=== PATIENT | female | born 1975 | race Caucasian/White ===

== ENCOUNTER 2019-11-16 09:17 | Emergency (ER) | payer OTHER, SELFPAY ==
--- NOTE | ~2019-11-16 | XR_ITS ---
XR lumbar spine min 4V 11/16/2019 09:57 Indication: Low back pain Procedure: 5 views of the lumbar spine Comparison: No prior studies for comparison. Findings: There is mild levocurvature of the lumbar spine. Vertebral body heights are maintained. No significant disc narrowing. No evidence for spondylolisthesis. Sacral foramen are symmetric. Pedicles intact. Impression: 1: No acute abnormality of the lumbar spine. Reviewed, dictated and finalized at location A. Impression: 1: No acute abnormality of the lumbar spine.
[2019-11-16 09:25] VITALS: BP 137/87; PULSE 79; RESP 18; TEMP 36.7; O2SAT 100
[2019-11-16 09:34] VITALS: O2SAT 98
--- NOTE | 2019-11-16 09:38 | ED.BACK ---
HPI - Back Pain/Injury General Chief Complaint: Back Pain/Injury Stated Complaint: Back ache Time Seen by Provider: 11/16/19 09:23 Source: RN notes reviewed History of Present Illness HPI Narrative: Patient presents emergency department from home for back pain. Patient states symptoms began approximately 1 week ago after she was moving furniture. Patient states that she does have a history of similar back problems approximately 2 years ago. She denies any direct trauma or injury. States pain is in the left lower back and does not radiate. Described as throbbing in nature and worse with movement. She denies any fevers or chills abdominal pain numbness or tingling of the extremities bowel or bladder incontinence or any other symptoms Related Data Allergies Allergy/AdvReac Type Severity Reaction Status Date / Time No Known Allergies Allergy Verified 11/16/19 09:30 Review of Systems Review of Systems: Narrative: Gen.: Denies fevers or chills ENT: Denies congestion Respiratory: Denies shortness of breath or cough CV: Denies chest pain or palpitations GI: Denies abdominal pain nausea, emesis or diarrhea denies incontinence Musculoskeletal: See HPI Neuro: Denies numbness, tingling, weakness or focal weakness Skin: Denies rash Except as documented, all other systems reviewed and negative [facility] Past Medical History Medical History (Updated 11/16/19 @ 10:46 by Sean Fitch DO) Patient denies significant medical history Social History Social History (Updated 11/16/19 @ 09:39 by Sean Fitch DO) Smoking packs per day: 0.5 Smoking cigarettes per day: 10.0 Exam Narrative: Exam Narrative: APPEARANCE: No acute distress, nontoxic, resting in bed Eyes: EOMI HEENT: Normocephalic, atraumatic, CV: Regular rate and rhythm without murmur RESPIRATORY: No respiratory distress. Clear to auscultation bilaterally. Abdomen: Soft and nontender, no rebound or guarding MUSCULOSKELETAl: Moves all extremities, no clubbing cyanosis or edema Back: No midline lumbar tenderness to palpation or step-off, tender to palpation over left paravertebral muscles L3-5 , pain increased with forward flexion NEURO: Awake and alert. Following commands, speech normal, no focal deficits, muscle strength 5 out of 5 bilateral lower extremities, bilateral patellar reflex 2+ SKIN:: Warm, dry. Normal Color no rash or lesions Course Course Emergency Course: Discussed with patient results of workup and diagnosis. Discussed need for follow-up with primary care, proper use of medication, and reasons to return to the emergency department. Patient understands and agrees to current treatment plan Vital Signs Vital signs: Vital Signs Temperature 98.1 F 11/16/19 09:25 Pulse Rate 79 11/16/19 09:25 Respiratory Rate 18 11/16/19 09:25 Blood Pressure 137/87 11/16/19 09:25 Pulse Oximetry 100 11/16/19 09:25 Temperature 98.1 F 11/16/19 09:25 Pulse Rate 62 11/16/19 10:19 Respiratory Rate 18 11/16/19 10:19 Blood Pressure 113/72 11/16/19 10:19 Pulse Oximetry 100 11/16/19 10:30 MDM - Back Pain/Injury MDM Narrative Medical decision making narrative: Patient?s pain is positional and localized to back without signs of cord compression or cauda equina. Normal nuerologic exams. No fever noted and no significant risk factors for osteomyelitis or spinal epidural abscess. No symptoms or signs to suggest pain is referred from abdominal or source. There are no pulsatile masses to exam. Patient ambulates with a steady gait and is felt to be up reasonable candidate for continued outpatient management Imaging Data Radiologist's impression: ITS Impressions Lumbar Spine X-Ray 11/16/19 09:58 Impression: 1: No acute abnormality of the lumbar spine. Discharge Plan Discharge Clinical Impression: Low back pain Patient Disposition: Home, Self-Care Condition: Stable Instructions: Antibiotic Form, Acute Lo
--- NOTE | 2019-11-16 09:41 | PC.NURSE ---
Pt ot xray. Will give medication when she returns
[2019-11-16] MEDS: KETOROLAC (*BKC) 60 MG/2 ML VIAL IM (10:01)
[2019-11-16 10:19] VITALS: BP 113/72; PULSE 62; RESP 18; O2SAT 100; O2SAT 99
[2019-11-16 10:30] VITALS: O2SAT 100
[2019-11-16] MEDS: CYCLOBENZAPRINE HCL 10 MG TABLET PO (10:48)
[2019-11-16 11:02] VITALS: BP 113/72; RESP 18; O2SAT 100
== END 2019-11-16 11:03 | disposition home or self-care (01) ==
PROVIDERS: Emergency Provider Emergency Medicine
DX: M54.5 Low back pain (principal); F17.210 Nicotine dependence, cigarettes, uncomplicated
CPT/HCPCS: 72110; 96372; 99283; A9270; J1885

== ENCOUNTER 2021-11-23 16:10 | Emergency (ER) | payer OTHER, SELFPAY ==
[2021-11-23 16:20] VITALS: BP 112/83; PULSE 92; RESP 16; TEMP 37.3; O2SAT 100
--- NOTE | 2021-11-23 16:33 | ED.SKABFB ---
HPI - Skin/Abscess/Foreign Bdy General Chief complaint: Wound/Laceration Stated complaint: Insect Bite Time Seen by Provider: 11/23/21 16:23 Source: patient Mode of arrival: ambulatory Limitations: no limitations History of Present Illness HPI narrative: Ms. Cardoza is a 46-year-old female patient presenting to the clinic today with complaints of a possible spider bite to her left anterior thigh. States that she was bit yesterday and took off her pants and noticed a spider fall out of her pants. She has redness that is going up her abdomen and down into her thighs. She reports the area palma but does not itch. She denies any fever or chills. Related Data Allergies Allergy/AdvReac Type Severity Reaction Status Date / Time No Known Allergies Allergy Verified 11/16/19 09:30 Review of Systems Review of Systems: Pertinent positives per HPI. Patient denies any fever, chills, headache, visual changes, dizziness, cough, runny nose, sore throat, shortness of breath, chest pain, palpitations, nausea, vomiting, diarrhea, constipation, abdominal pain, or any urinary issues. PMFSH Past Medical History Medical History Patient denies significant medical history Social History Social History Smoking packs per day: 0.5 Smoking cigarettes per day: 10.0 Comments At the time of my signature, I reviewed and agree with the nursing past medical, surgical, social, and family history. There is no relevant family history pertinent to the patient complaint. Exam Narrative: General: Well-developed, well nourished, in no apparent distress Head: Normocephalic, atraumatic. Cardio: Regular rate and rhythm, s1 and s2 normal, no murmur appreciated. Resp: Clear to auscultation bilaterally, no rhonchi, rales, wheezing or rubs. Integumentary: [place], warm, and dry, probable spider bite with quarter size induration with redness surrounding the wound with a black center, tenderness to palpation with redness/rash to the lower abdomen and anterior thighs bilaterally Course Course Emergency Course: Portions of this record may have been created with voice recognition software. Level of Care: Express Care Visit Vital Signs Vital signs: Vital Signs Temperature 37.3 C 11/23/21 16:20 Pulse Rate 92 11/23/21 16:20 Respiratory Rate 16 11/23/21 16:20 Blood Pressure 112/83 11/23/21 16:20 Pulse Oximetry 100 11/23/21 16:20 Oxygen Delivery Room Air 11/23/21 16:20 Temperature 37.3 C 11/23/21 16:20 Pulse Rate 92 11/23/21 16:20 Respiratory Rate 16 11/23/21 16:20 Blood Pressure 112/83 11/23/21 16:20 Pulse Oximetry 100 11/23/21 16:20 Oxygen Delivery Room Air 11/23/21 16:20 Vital signs reviewed Discharge Plan Discharge Clinical Impression: Infected insect bite Patient Disposition: Home, Self-Care Condition: Stable Instructions: Antibiotic Form, Insect Bite or Sting (ED) Additional Instructions: Doxycycline as prescribed May apply cool compress to the affected area May take Benadryl 25 to 50 mg every 6 hours as needed for itching Tylenol/Motrin as needed for pain/fever Follow-up with your PCP in 3 to 5 days if symptoms persist or sooner if they worsen Prescriptions: New doxycycline monohydrate 100 mg capsule 100 mg PO BID 7 Days Qty: 14 0RF Follow-up/Referrals: PHYSICIAN,QUILL FIXER [Primary Care Provider] - Time of Disposition: 16:35 Quality NIHSS Nursing Documentation ED NIHSS nursing documentation: reviewed/agree
== END 2021-11-23 16:40 | disposition home or self-care (01) ==
PROVIDERS: Emergency Provider Nurse Practitioner Family
DX: S70.362A Insect bite (nonvenomous), left thigh, initial encounter (principal); L08.9 Local infection of the skin and subcutaneous tissue, unspecified; W57.XXXA Bitten or stung by nonvenomous insect and other nonvenomous arthropods, initial encounter
CPT/HCPCS: 99213; G0463

== ENCOUNTER 2024-08-23 10:32 | Emergency (ER) | payer SELFPAY ==
--- NOTE | ~2024-08-23 | XR_ITS ---
Right foot Technique: AP, oblique, and lateral views were obtained. Clinical History: Injury Findings: There is acute transverse fracture at the proximal shaft of the second proximal phalanx. Th ere is also acute nondisplaced transverse fracture of the first proximal phalanx. Joint spaces are pr eserved without erosive or degenerative change. Soft tissues are unremarkable. Impression: Acute, transverse, nondisplaced fractures of the first and second proximal phalanges. Reviewed, dictated and finalized at location M. Impression: Acute, transverse, nondisplaced fractures of the first and second proximal phal anges.
[2024-08-23 10:35] VITALS: BP 154/71; PULSE 64; RESP 20; TEMP 36.3; O2SAT 100
--- NOTE | 2024-08-23 10:35 | ED_ITS ---
HPI - Extremity Injury (Lower) General Chief Complaint: Extremity Injury, Lower Stated Complaint: right foot injury Time Seen by Provider: 08/23/24 10:35 Source: patient Mode of arrival: ambulatory Limitations: no limitations History of Present Illness HPI Narrative: Patient is a 49-year-old female who presents with right foot pain after dropping heavy table on foot 2 nights ago. Reports bruising, swelling and abrasion. Pain with range motion. Patient is able to ambulate very slowly and with a limp. Related Data Allergies Allergy/AdvReac Type Severity Reaction Status Date / Time No Known Allergies Allergy Verified 11/16/19 09:30 Review of Systems Review of Systems: All systems reviewed & are unremarkable except as noted in HPI and below Constitutional: Constitutional: Denies body ache(s), Denies chills, Denies fatigue, Denies fever(s), Denies headache(s), Denies malaise and Denies weakness Eyes: Eyes: Denies blurry vision, Denies irritation and Denies loss of vision ENT: Denies otalgia, Denies headache(s), Denies nasal discharge, Denies sinus pain and Denies sore throat Cardiovascular: Cardiovascular: Denies chest pain, Denies irregular heart rhythm and Denies dyspnea Respiratory: Respiratory: Denies dyspnea Gastrointestinal: Gastrointestinal: Denies abdominal pain, Denies melena, Denies hematochezia, Denies diarrhea, Denies nausea and Denies vomiting Musculoskeletal: Musculoskeletal: Denies back pain, Denies myalgias, Reports arthralgias and Reports joint swelling Integumentary/Breasts: Skin/Breast: Denies pruritus and Denies rash Neurologic: Denies headache(s), Denies loss of vision and Denies weakness Psychiatric: Psychiatric: Reports no additional psychiatric complaints Endocrine: Endocrine: Denies fatigue PMFSH Past Medical History Medical History Patient denies significant medical history Social History Social History Smoking packs per day: 0.5 Smoking cigarettes per day: 10.0 Comments At time of signature, agree with nursing past medical, surgical, social and family history. There is no relevant family history pertinent to the presenting complaint. Exam Const: General: cooperative, healthy appearing, comfortable, no acute distress and well nourished Nutritional Appearance: well nourished Orientation/consciousness: patient oriented x3 Limitations: no limitations HENMT: Head: normal to inspection, normocephalic and atraumatic Ears: hearing grossly normal bilaterally and external ears normal Face/Nose/Sinus: Normal external nose present, normal facial exam and face symmetric Face and sinus: normal facial exam and face symmetric Mouth: Yes lip normal Eyes: General: appearance normal, both eyes and all related structures Alignment and Position: alignment normal and position normal Periorbital: periorbital findings normal Eyelids: eyelids normal Pupils: Equal, round and reactive pupils present EOM: EOMs intact bilaterally Neck: Neck: normal visual inspection, full ROM and supple Chest: Chest palpation & inspection: normal inspection of the chest Resp: Effort & Inspection: normal respiratory effort and able to speak in complete sentences Auscultation: clear to auscultation bilaterally Cardio: Rate: regular rate Rhythm: regular rhythm Heart sounds: S1 normal heart sound present and S2 normal heart sound present GI: Inspection: normal to inspection Skin: General skin exam: normal color and no rashes or lesions noted Neuro: General: patient oriented x3 and moves all extremities Cranial nerves: Yes Equal, round and reactive pupils present Speech: normal speech Gait exam (Neuro): Normal gait present Extrem: General: normal to inspection, full ROM and no edema Right lower extremity: ankle Details: normal to inspection and normal ROM; no tenderness, no swelling and achilles tendon exam normal and foot Details: normal capillary refill, tenderness Location: of the great toe Location: at the MTP joint and along the entire digit and of another digit Location: the 2nd digit, at the MTP joint and along the entire digit, abnormal ROM of toe Details: pain with active ROM Location: of the great toe and of the 2nd digit, abrasion dorsal great toe Details: single, ecchymosis (entire foot) dorsal and vascular exam Details: dorsalis pedis pulse present and normal capillary refill Psych: Appearance: grossly normal and well kempt Mental Status: mental sta tus grossly normal Speech and movement: Normal speech and movement present Affect: normal affect Attitude: cooperative Thought process: Normal thought process present Course Course Emergency Course: Patient is aware of diagnosis, understands and agrees to treatment plan. Anticipatory guidance given. Patient agrees to follow-up as directed and is aware of reasons to seek care at the emergency department. Portions of this record may have been created with voice recognition software Level of Care: Express Care Visit Vital Signs Vital signs: Reviewed MDM - Extremity Injury (Lower) MDM Narrative Medical decision making narrative: Wound cleansed, dressed and covered. Postop shoe applied Pt well hydrated appearing, in no respiratory distress, hemodynamically stable. Recommend supportive care. The patient is stable at time of discharge the clinical impression was discussed and the patient was given the opportunity to ask questions, which were addressed as completely as possible given the inf ormation available at present. Anticipatory guidance and return to care precautions were discussed and the importance of primary care follow-up was stressed and encouraged. The patient voiced understanding of the plan, indications to return, and the need for follow-up. Exam findings show no acute concerns or changes Patient is appropriate for outpatient treatment and follow-up. Differential Diagnosis Differential diagnosis: Likely puncture wound of foot, fracture of toe and other (Foot fracture, foot sprain, contusion) Medical Records Attestation: I reviewed the patient's medical records. Imaging Data Radiologist's impression: Right foot Technique: AP, oblique, and lateral views were obtained. Clinical History: Injury Findings: There is acute transverse fracture at the proximal shaft of the second proximal phalanx. There is also acute nondisplaced transverse fracture of the first proximal phalanx. Joint spaces are preserved without erosive or degenerative change. Soft tissues are unremarkable. Impression: Acute, transverse, nondisplaced fractures of the first and second proximal phalanges. Discharge Plan Discharge Clinical Impression: Fractured great toe Qualifiers: Encounter type: initial encounter Fracture type: closed Phalanx: proximal Fracture alignment: nondisplaced Laterality: right Qualified Code(s): S92.414A - Nondisplaced fracture of proximal phalanx of right great toe, initial encounter for closed fracture Fracture of toe of right foot Qualifiers: Encounter type: initial encounter Toe: lesser toe Fracture type: closed Phalanx: proximal Fracture alignment: nondisplaced Qualified Code(s): S92.514A - Nondisplaced fracture of proximal phalanx of right lesser toe(s), initial encounter for closed fracture Patient Disposition: Home, Self-Care Condition: Stable Instructions: Toe Fracture (ED) Additional Instructions: You have fractures in both 1st and 2nd toe Please rest, ice and elevate the affected extremity. Follow up with Orthopedic Surgery in 1-2 days for further evaluation - please call for an appointment. Keep postop shoe clean, dry and on. For pain, you may take: Tylenol 650-1000mg by mouth every 4-6 hours. Do not exceed 4000mg in 24 hours. Advil (Ibuprofen) 600 mg by mouth every 6 hours. Do not exceed 2400mg in 24 hours. 8 AM: Tylenol 11 AM: Ibuprofen 2 PM: Tylenol 5 PM: Ibuprofen 8 PM: Tylenol 11 PM: Ibuprofen 2 AM: Tylenol 5 AM: Ibuprofen Please go to ER immediately for increased pain, tingling/numbness, swelling, redness, and fever Your blood pressure was elevated above 120/80 today at Urgent Care. This puts you above the threshold for follow up visit with a primary care provider. High blood pressure does not usually cause any symptoms, however it may lead to kidney failure, stroke, heart disease just to name a few if untreated . Many people are anxious when seeing a provider or nurse. As a result, you are not diagnosed with hypertension at this time unless your blood pressure is persistently high at two office visits at least one week apart. Some things that can help lower blood pressure are lifestyle modifications, such as light exercise, decreased salt in diet, and weight loss. It is important to follow up with a PCP about this within 1 week. Patient Language: Mauritian Prescriptions: No Action doxycycline monohydrate 100 mg capsule 100 mg PO BID 7 Days Qty: 14 0RF Follow-up/Referrals: Silverio Fulton MD [Physician] - 3 Days (Establish care) Jason Cole DPM [Physician] - 3 Days (Podiatry. Fracture of 1st and 2nd digit) Stand Alone Forms: Work/School Release IP Time of Disposition: 11:25
[2024-08-23 10:45] VITALS: BP 154/71; PULSE 64; RESP 20; TEMP 36.3; O2SAT 100
== END 2024-08-23 11:38 | disposition home or self-care (01) ==
PROVIDERS: Emergency Provider Nurse Practitioner Family
DX: S92.414A Nondisplaced fracture of proximal phalanx of right great toe, initial encounter for closed fracture (principal); S92.514A Nondisplaced fracture of proximal phalanx of right lesser toe(s), initial encounter for closed fracture; W20.8XXA Other cause of strike by thrown, projected or falling object, initial encounter; F17.210 Nicotine dependence, cigarettes, uncomplicated
CPT/HCPCS: 73630; 99214; G0463